=== PATIENT | male | born 1955 | race Caucasian/White ===

== ENCOUNTER 2017-02-26 15:23 | Observation (INO) | payer OTHER ==
[~2017-02-26] VITALS: Ht 182.9 cm; Wt 81.2 kg
[2017-02-26] MEDS ORDERED: KETOROLAC TROMETHAMINE 30 MG/ML VIAL IV STA (15:45)
[2017-02-26] MEDS ORDERED: SODIUM CHLORIDE 0.9% 500ML 500 ML IV STA (15:45)
[2017-02-26] MEDS ORDERED: BUPR1SUB23 PO (16:03)
[2017-02-26] MEDS ORDERED: CLON0.2T PO (16:03)
[2017-02-26 16:07] LABS: COMPLETE YES; HEMATOCRIT 37.7 % (42-52); IG% 0.5 %; LYMPH % 24.9 %; LYMPH ABS # 1.59 K/uL (1.2-3.4); MEAN CELL VOLUME 83.8 fL (80-100); MEAN CORPUSCULAR HEMOGLOBIN 29.1 pg (25-34); MEAN CORPUSCULAR HGB CONC 34.7 g/dl (32-36); MEAN PLATELET VOLUME 10.6 fL (7.4-10.4); MONO % 5.2 %; NEUT % 69.4 %; PLATELET COUNT 113 K/uL (130-400); WHITE BLOOD COUNT 6.39 K/uL (4.8-10.8)
--- NOTE | 2017-02-26 16:07 | DIAGNOSTIC IMAGING REPORT ---
CHEST ONE VIEW PORTABLE CLINICAL HISTORY: Chest pain. COMPARISON STUDY: No previous studies for comparison. FINDINGS: Incidental note is made of an azygos fissure and multiple left-sided rib fractures. Moderate enlargement of the cardiac silhouette is noted. There is no evidence of pulmonary edema. Mild left basilar opacity is present. There is no evidence of pulmonary edema. There is a possible small left pleural effusion. IMPRESSION: 1. Hazy left basilar opacity which favors atelectasis or artifact although consolidation could appear similar. Radiographic follow up is recommended. Possible small left pleural effusion. 2. Moderate cardiomegaly without evidence of pulmonary edema. Electronically signed by: Billy Adhikari M.D. 02/26/2017 4:06 PM Dictated Date/Time: 02/26/2017 4:04 PM
[2017-02-26] MEDS ORDERED: GABA-113 PO (16:17)
[2017-02-26] MEDS ORDERED: PROM25TA9 PO (16:17)
[2017-02-26] MEDS ORDERED: FAMO20TA11 PO (16:17)
[2017-02-26] MEDS ORDERED: CTP/1 PO (16:17)
[2017-02-26] MEDS ORDERED: LISI-729 PO (16:17)
[2017-02-26] MEDS ORDERED: QUET1TAB34 PO (16:17)
[2017-02-26] MEDS ORDERED: GABA800T PO (16:17)
[2017-02-26] MEDS ORDERED: DOXE50CA3 PO (16:17)
[2017-02-26] MEDS ORDERED: GLC/500 PO (16:17)
[2017-02-26] MEDS ORDERED: SUMA50TA15 PO (16:17)
--- NOTE | 2017-02-26 16:23 | EMERGENCY ROOM VISIT NOTE ---
History Report prepared by Boris: Delores Luis Under the Supervision of: Dr. Gio Isaac D.O. First contact with patient: 15:26 Chief Complaint: CHEST PAIN Stated Complaint: CARDIAC ASSESSMENT, SOB History of Present Illness The patient is a 61 year old male who presents to the Emergency Room with complaints of persistent mid-chest pain starting about 4-5 hours ago. He describes it to be a chest tightness. He denies any pain radiation to arm or jaw. He has worsening pain with palpation of chest and arm movement. He also complains of shortness of breath. He was lying down on his couch when he had an onset of his symptoms. He had used 1 tab Suboxone about 5 hours ago and started having the chest pain soon after. He reports a history of similar symptoms in the past with broken ribs after a fall but reports worse symptom severity today. He denies any history of heart attack. He has a history of hypertension and pulmonary embolism. He is visiting [place] from [place]. He has a history of inhaling heroin. His last heroin use was about 2 days ago. He uses heroin almost daily. He also complains of diarrhea. Pt denies headache, change in vision, fevers, nausea, vomiting, pain with urination, and melena. He does have a history of hypertension and diabetes. Source of History: patient Onset: about 4-5 hours ago Position: chest (mid) Quality: other (chest tightness) Timing: other (persistent) Modifying Factors (Worsening): movement (arm), other (palpation) Associated Symptoms: + SOB, No fevers, No headache, No nausea, No vomiting Review of Systems See HPI for pertinent positives & negatives. A total of 10 systems reviewed and were otherwise negative. Past Medical & Surgical Medical Problems: (1) Broken ribs (2) DM (diabetes mellitus) (3) Hepatitis C (4) HTN (hypertension) (5) MRSA (methicillin resistant Staphylococcus aureus) (6) Pulmonary embolism Surgical Problems: (1) H/O hernia repair Family History Patient reports no known family medical history. Social History Drug Use: heroin Marital Status: single Occupation Status: unemployed Current/Historical Medications Scheduled Clonidine Hcl (Catapres), 0.1 MG PO TID Doxepin (Sinequan), 100 MG PO HS Famotidine (Pepcid), 20 MG PO DAILY Gabapentin (Neurontin), 800 MG PO TID Lisinopril (Prinivil), 5 MG PO DAILY Metformin Hcl (Glucophage), 500 MG PO BID Quetiapine Fumarate (Seroquel), 100 MG PO BID Sumatriptan Succinate (Imitrex), 50 MG PO PRN Scheduled PRN Buprenorphine Hcl-Naloxone Hcl (Suboxone 8-2 Mg), 1 TAB PO DAILY PRN for PRN Promethazine Hcl (Phenergan), 25 MG PO BID PRN for Nausea Allergies Coded Allergies: No Known Allergies (Unverified , 02/26/17) Physical Exam Vital Signs Date Time Temp Pulse Resp B/P Pulse Ox O2 Delivery O2 Flow Rate FiO2 02/26/17 16:51 75 24 02/26/17 16:46 156/99 02/26/17 16:29 65 30 02/26/17 16:24 193/109 02/26/17 16:23 60 23 02/26/17 16:19 59 02/26/17 15:53 72 17 97 02/26/17 15:37 96 Room Air 02/26/17 15:37 36.9 89 20 128/87 96 Room Air 02/26/17 15:37 96 Room Air 02/26/17 15:30 128/87 Physical Exam GENERAL: Sitting up in bed, disheveled, no acute distress, non-toxic, talking in full sentences. EYE EXAM: normal conjunctiva OROPHARYNX: no exudate, no erythema, lips, buccal mucosa, and tongue normal and mucous membranes are moist NECK: supple, no nuchal rigidity, no adenopathy, non-tender CHEST: Reproducible anterior chest wall tenderness over the sternum, worsens with AB-duction of right and left extremities, nontender once you get to mid- axillary lines. LUNGS: Clear to auscultation. Normal chest wall mechanics HEART: no murmurs, S1 normal and S2 normal ABDOMEN: abdomen soft, non-tender, normo-active bowel sounds, no masses, no rebound or guarding. BACK: Back is symmetrical on inspection and there is no deformity, no midline tenderness, no CVA tenderness. SKIN: no rashes and no bruising. Multiple tattoos. UPPER EXTREMITIES: upper extremities are grossly normal. LOWER EXTREMITIES: No pitting edema. Calves are equal bilaterally. NEURO EXAM: Normal sensorium, cranial nerves II-XII grossly intact, normal speech, no gross weakness of arms, no gross weakness of legs. Medical Decision & Procedures ER Provider Diagnostic Interpretation: X-ray results as stated below per my and the radiologist's interpretation: CHEST ONE VIEW PORTABLE CLINICAL HISTORY: Chest pain. COMPARISON STUDY: No previous studies for comparison. FINDINGS: Incidental note is made of an azygos fissure and multiple left-sided rib fractures. Moderate enlargement of the cardiac silhouette is noted. There is no evidence of pulmonary edema. Mild left basilar opacity is present. There is no evidence of pulmonary edema. There is a possible small left pleural effusion. IMPRESSION: 1. Hazy left basilar opacity which favors atelectasis or artifact although consolidation could appear similar. Radiographic follow up is recommended. Possible small left pleural effusion. 2. Moderate cardiomegaly without evidence of pulmonary edema. Electronically signed by: Billy Adhikari M.D. 02/26/2017 4:06 PM Dictated Date/Time: 02/26/2017 4:04 PM Laboratory Results 02/26/17 15:55 Test 02/26/17 15:55 White Blood Count 6.39 K/uL (4.8-10.8) Red Blood Count 4.50 M/uL (4.7-6.1) Hemoglobin 13.1 g/dL (14.0-18.0) Hematocrit 37.7 % (42-52) Mean Corpuscular Volume 83.8 fL (80-100) Mean Corpuscular Hemoglobin 29.1 pg (25-34) Mean Corpuscular Hemoglobin Concent 34.7 g/dl (32-36) Platelet Count 113 K/uL (130-400) Mean Platelet Volume 10.6 fL (7.4-10.4) Neutrophils (%) (Auto) 69.4 % Lymphocytes (%) (Auto) 24.9 % Monocytes (%) (Auto) 5.2 % Eosinophils (%) (Auto) 0.0 % Basophils (%) (Auto) 0.0 % Neutrophils # (Auto) 4.44 K/uL (1.4-6.5) Lymphocytes # (Auto) 1.59 K/uL (1.2-3.4) Monocytes # (Auto) 0.33 K/uL (0.11-0.59) Eosinophils # (Auto) 0.00 K/uL (0-0.5) Basophils # (Auto) 0.00 K/uL (0-0.2) Immature Granulocyte % (Auto) 0.5 % Immature Granulocyte # (Auto) 0.03 K/uL (0.00-0.02) Prothrombin Time 11.4 SECONDS (9.0-12.0) Prothromb Time International Ratio 1.1 (0.9-1.1) D-Dimer 440 ug/L FEU (0-500) Anion Gap 8.0 mmol/L (3-11) Est Creatinine Clear Calc Drug Dose 118.4 ml/min Estimated GFR () 116.5 Estimated GFR (Non- 100.6 BUN/Creatinine Ratio 11.2 (10-20) Calcium Level 8.8 mg/dl (8.5-10.1) Total Bilirubin 0.5 mg/dl (0.2-1) Direct Bilirubin 0.2 mg/dl (0-0.2) Aspartate Amino Transf (AST/SGOT) 53 U/L (15-37) Alanine Aminotransferase (ALT/SGPT) 56 U/L (12-78) Alkaline Phosphatase 82 U/L (45-117) Total Creatine Kinase 87 U/L (39-308) Total Protein 8.4 gm/dl (6.4-8.2) Albumin 3.2 gm/dl (3.4-5.0) Laboratory results per my review. Medications Administered Medications (Trade) Dose Ordered Sig/De Route Start Time Stop Time Status Last Admin Dose Admin Sodium Chloride (Nss 500ml) 500 ml @ 999 mls/hr Q31M STAT IV 02/26/17 15:45 02/26/17 16:15 DC 02/26/17 16:06 999 MLS/HR Ketorolac Tromethamine (Toradol Inj) 30 mg NOW STAT IV 02/26/17 15:45 02/26/17 15:47 DC 02/26/17 16:06 30 MG Aspirin (Aspirin Chew) 324 mg NOW STAT PO 02/26/17 16:47 02/26/17 16:48 DC 02/26/17 16:47 324 MG ECG Indication: chest pain Rate (beats per minute): 78 Rhythm: sinus rhythm Findings: prolonged QT, other (normal axis) ED Course ED COURSE: Vital signs were reviewed and showed normal. The patients medical record was reviewed The above diagnostic studies were performed and reviewed. ED treatments and interventions as stated above. 1526: The patient was evaluated in room B12A. A complete history and physical examination was performed. 1545: Toradol Inj 30 mg IV, Sodium Chloride 500 ml @ 999 mls/hr IV 1643: Upon reevaluation, the patient is resting comfortably.I discussed my findings with the patient and he understands and agrees with the treatment plan. Based on the patients age, coexisting illnesses, exam and lab findings the decision to treat as an inpatient was made. The patient remained stable while under my care. The patient will be evaluated for further management. 1646: I discussed the patient's case with RONNA Pino from [facility]. 1647: Aspirin 324 mg PO Medical Decision Differential diagnoses includes but is not limited to acute coronary syndrome, myocardial infarction, pericarditis, pulmonary embolus, aortic dissection, pneumonia, pneumothorax, musculoskeletal, shingles, esophageal. Blood pressure screening: Patient was found to have normal blood pressure on screening and does not require follow-up. Medication Reconciliation: I attest that I have personally reviewed the patient' s current medication list. Patient is a 61-year-old male brought in by EMS for midsternal chest pain associated with shortness of breath which started around 11 to 12 this morning shortly after him taking a Suboxone which is not prescribed to him. He does use heroin daily but has not used the past 3 days. Pain on my exam is completely reproducible and worsens with movement of the arms. No fevers. He is a diabetic with a history of hypertension. EKG was nondiagnostic. Chest x- ray was unremarkable. Troponin was negative but CK-MB was elevated. Patient was given aspirin and I did order labetalol but since his blood pressure trended down we held on this. With his elevation in the CK-MB elected to observe him overnight with his chest pain. His pain significantly improved with Toradol. I do favor his chest pain is multifactorial and felt it was reasonable to observe him overnight for this chest pain with elevation in the CK -MB. Consults Time Called: 1640 Consulting Physician: RONNA Pino from [facility] Returned Call: 1646 I discussed the patient's case with RONNA Pino from [facility]. Impression Primary Impression: Precordial chest pain Additional Impressions: Musculoskeletal chest pain Elevated CK-MB level Hypertension Scribe Attestation The scribe's documentation has been prepared under my direction and personally reviewed by me in its entirety. I confirm that the note above accurately reflects all work, treatment, procedures, and medical decision making performed by me. Departure Information Dispostion Being Evaluated By Hospitalist Patient Instructions My [facility] Problem Qualifiers Additional Impressions: Hypertension Hypertension type: unspecified secondary hypertension Qualified Codes: I15.9 - Secondary hypertension, unspecified
[2017-02-26 16:24] LABS: BLOOD UREA NITROGEN 8 mg/dl (7-18); BUN/CREATININE RATIO 11.2 (10-20); CALCIUM 8.8 mg/dl (8.5-10.1); CARBON DIOXIDE 26 mmol/L (21-32); CHLORIDE 108 mmol/L (98-107); CREATININE 0.71 mg/dl (0.60-1.40); GLUCOSE 132 mg/dl (70-99); POTASSIUM 3.5 mmol/L (3.5-5.1); SODIUM 142 mmol/L (136-145)
[2017-02-26 16:29] LABS: CKMB/CK RATIO 4.5 (0-3.0)
[2017-02-26] MEDS ORDERED: LABETALOL HCL IV 5 MG/ML 20ML IV STA (16:37)
[2017-02-26] MEDS ORDERED: ASPIRIN 81 MG CHEW PO STA (16:47)
[2017-02-26] MEDS ORDERED: ACETAMINOPHEN 325 MG TAB PO PRN (17:15)
[2017-02-26] MEDS ORDERED: NITROGLYCERIN 0.4 MG SL PER TAB CHARGE SL PRN (17:15)
[2017-02-26] MEDS ORDERED: ONDANSETRON INJ 2 MG/ML 2 ML VIAL IV PRN (17:15)
[2017-02-26] MEDS ORDERED: DEXTROSE 50% 50 ML SYR IV PRN (17:15)
[2017-02-26] MEDS ORDERED: GLUCOSE 40% GEL 15 GM TUBE PO PRN (17:15)
[2017-02-26] MEDS ORDERED: GLUCOSE 10 TABS/TUBE PO PRN (17:15)
[2017-02-26] MEDS ORDERED: GLUCAGON FOR INJ 1 MG VIAL SQ PRN (17:15)
[2017-02-26] MEDS ORDERED: PROMETHAZINE HCL INJ 12.5 MG in SODIUM CHLORIDE 0.9% 50ML 50 ML IV PRN (17:30)
[2017-02-26] MEDS ORDERED: LORAZEPAM 2 MG/ML 1 ML VIAL IV PRN ×3 (17:45→23:00)
--- NOTE | 2017-02-26 17:57 | History and Physical ---
History & Physical Date & Time of Service: February 26, 2017 ~ 17:00 Chief Complaint: Chest Pain, Shortness of Breath Primary Care Physician: No Doctor, Assigned History of Present Illness 61 year old male who presents to the ER with chest pain and shortness of breath. Patient reports his symptoms began today while he was laying on the couch. He reports the pain as located in his mid chest. He describes the pain as a pressure. He reports associated shortness of breath, lightheadedness, and dizziness. He describes the pain as severe. He denies diaphoresis or nausea. He reports exertional shortness of breath for the past one year. He also reports coughing up blood for the past one year. Patient is from the [place] area and is here visiting a friend. He admits to drug and alcohol use however does not give many details about the quantity of his use. He reports drinking three 40oz beers yesterday but will not say how often he drinks. He reports using "speed balls" two days ago which he reports is a combination of heroine and cocaine that can be injected or inhaled. Again, he will not say how often he uses. He does report using for the past 40 years. He says that he uses when he is depressed. He reports suicidal thoughts but denies having a plan. He does report multiple intentional drug overdoses and reports "it never seems to work. I always wake up." He denies abdominal pain, vomiting, or diarrhea. No fevers or chills. He denies any urinary symptoms. In the ER, patient's work up is unremarkable. Past Medical/Surgical History Medical Problems: (1) Broken ribs Status: Resolved (2) DM (diabetes mellitus) Status: Chronic (3) Hepatitis C Status: Chronic (4) HTN (hypertension) Status: Chronic (5) MRSA (methicillin resistant Staphylococcus aureus) Status: Chronic (6) Pulmonary embolism Status: Resolved Surgical Problems: (1) H/O hernia repair Status: Chronic Family History denies family history of CAD Social History Smoking Status: Never Smoker Alcohol Use: will not quanitfy use Drug Use: cocaine (will not quantify use), heroin (will not quantify use) Multi-Drug Resistant Organisms History of MDRO: Yes Type of MDRO: MRSA Allergies Coded Allergies: No Known Allergies (Unverified , 02/26/17) Home Medications Scheduled Clonidine Hcl (Catapres), 0.1 MG PO TID Doxepin (Sinequan), 100 MG PO HS Famotidine (Pepcid), 20 MG PO DAILY Gabapentin (Neurontin), 800 MG PO TID Lisinopril (Prinivil), 5 MG PO DAILY Metformin Hcl (Glucophage), 500 MG PO BID Quetiapine Fumarate (Seroquel), 100 MG PO BID Sumatriptan Succinate (Imitrex), 50 MG PO PRN Scheduled PRN Buprenorphine Hcl-Naloxone Hcl (Suboxone 8-2 Mg), 1 TAB PO DAILY PRN for PRN Promethazine Hcl (Phenergan), 25 MG PO BID PRN for Nausea Review of Systems ROS per HPI, all other systems reviewed and negative Physical Exam Vital Signs Date Time Temp Pulse Resp B/P Pulse Ox O2 Delivery O2 Flow Rate FiO2 02/26/17 16:46 156/99 02/26/17 16:29 65 30 02/26/17 16:24 193/109 02/26/17 16:23 60 23 02/26/17 16:19 59 02/26/17 15:53 72 17 97 02/26/17 15:37 96 Room Air 02/26/17 15:37 36.9 89 20 128/87 96 Room Air 02/26/17 15:37 96 Room Air 02/26/17 15:30 128/87 General Appearance: no apparent distress Head: normocephalic Eyes: normal inspection ENT: hearing grossly normal Neck: supple, no JVD Respiratory/Chest: lungs clear, normal breath sounds, no respiratory distress, + pertinent finding (left chest wall tender) Cardiovascular: regular rate, rhythm, no edema, normal peripheral pulses Abdomen/GI: normal bowel sounds, non tender, soft Extremities/Musculoskelatal: normal inspection, no calf tenderness Neurologic/Psych: no motor/sensory deficits, alert, normal mood/affect, oriented x 3 Skin: normal color, warm/dry Diagnostics Laboratory Results Results Past 24 Hours Test 02/26/17 15:55 Range/Units White Blood Count 6.39 4.8-10.8 K/uL Red Blood Count 4.50 4.7-6.1 M/uL Hemoglobin 13.1 14.0-18.0 g/dL Hematocrit 37.7 42-52 % Mean Corpuscular Volume 83.8 80-100 fL Mean Corpuscular Hemoglobin 29.1 25-34 pg Mean Corpuscular Hemoglobin Concent 34.7 32-36 g/dl Platelet Count 113 130-400 K/uL Mean Platelet Volume 10.6 7.4-10.4 fL Neutrophils (%) (Auto) 69.4 % Lymphocytes (%) (Auto) 24.9 % Monocytes (%) (Auto) 5.2 % Eosinophils (%) (Auto) 0.0 % Basophils (%) (Auto) 0.0 % Neutrophils # (Auto) 4.44 1.4-6.5 K/uL Lymphocytes # (Auto) 1.59 1.2-3.4 K/uL Monocytes # (Auto) 0.33 0.11-0.59 K/uL Eosinophils # (Auto) 0.00 0-0.5 K/uL Basophils # (Auto) 0.00 0-0.2 K/uL RDW Standard Deviation 41.2 36.4-46.3 fL RDW Coefficient of Variation 13.5 11.5-14.5 % Immature Granulocyte % (Auto) 0.5 % Immature Granulocyte # (Auto) 0.03 0.00-0.02 K/uL D-Dimer 440 0-500 ug/L FEU Sodium Level 142 136-145 mmol/L Potassium Level 3.5 3.5-5.1 mmol/L Chloride Level 108 98-107 mmol/L Carbon Dioxide Level 26 21-32 mmol/L Anion Gap 8.0 3-11 mmol/L Blood Urea Nitrogen 8 7-18 mg/dl Creatinine 0.71 0.60-1.40 mg/dl Est Creatinine Clear Calc Drug Dose 118.4 ml/min Estimated GFR () 116.5 Estimated GFR (Non- 100.6 BUN/Creatinine Ratio 11.2 10-20 Random Glucose 132 70-99 mg/dl Calcium Level 8.8 8.5-10.1 mg/dl Total Creatine Kinase 87 39-308 U/L Creatine Kinase MB 3.9 0.5-3.6 ng/ml Creatine Kinase MB Ratio 4.5 0-3.0 Troponin I < 0.015 0-0.045 ng/ml Microbiology Results 02/26/17 Blood Culture, Ordered Pending 02/26/17 Blood Culture, Ordered Pending Diagnostic Radiology CXR IMPRESSION: 1. Hazy left basilar opacity which favors atelectasis or artifact although consolidation could appear similar. Radiographic follow up is recommended. Possible small left pleural effusion. 2. Moderate cardiomegaly without evidence of pulmonary edema. Impression Assessment and Plan CHEST PAIN - admit to tele - patient presenting with sudden onset chest pain and shortness of breath - risk factors for ACS: HTN, DM - initial troponin negative, EKG without acute ST changes - D. Dimer negative - noted reproducible chest pain with palpation - suspect symptoms are musculoskeletal / due to anxiety / drug and alcohol use - will check resting echo, evaluate for vegetation due to IVD use (blood cultures also ordered); consider stress test - check lipid panel and hgb a1c ALCOHOL AND DRUG USE - difficult to obtain quantity of use from patient - reports last drink of alcohol was yesterday, last use of cocaine and heroine was 2 days ago, used Suboxone today - will initial alcohol withdrawal protocol - noted patient already on gabapentin ; since he will not quantify his use will continue his home dose of gabapentin and order PRN Ativan - check ETOH level and drug screen - banana bag - low threshold for ICU transfer for Precedex SUICIDAL THOUGHTS - patient reports suicidal thoughts and attempted intentional overdoses with drugs - suicide precautions - mental health consult REPORTED HEMOPTYSIS - will monitor for - hgb stable - consider CT chest if hemoptysis observed PROLONGED QTC - monitor EKG daily - avoid QTC prolonging agents when able HEPATITIS C - check LFTs DM - non compliant with metformin - check hgb a1c - will utilize SSI while hospitalized HTN - BP controlled initially however jeff in the ER and received IV Labetalol with improvement - non compliant with Lisinopril, reports he does take his clonidine - will continue clonidine, could add Lisinopril if needed DVT PROPHYLAXIS - SQ Lovenox DISPO - The patient will be placed as observation status for now until further work up is complete. ATTENDING NOTE : records reviewed care co ordinated with Teagan FRIEND pt interviewed and examined please refer to Teagan Arellano's documentation for detail pt history Briefly , 61 yo M from [facility] with hx of polysubstance abuse including IV drugs, Alcohol abuse presented to ED with complain of chest pain his hx is very vague claims to use IV drugs prior to coming to ER , then changes his story that he drank alcohol -vodka -does not want to mention how much P/E: GEN ; disheveled appearing , smells of alcohol HT : tachycardic LUNGS : CTA ABDOMEN: soft, non tender EXT : multiple track springer on extremities NEURO: no focal deficit A/p : CHEST PAIN ; atypical for ACS monitor in tele follow serial Cardiac markers repeat EKG in AM POLYSUBSTANCE ABUSE /ETOH INTOXICATION: pt will be started on Ativan as ETOH withdrawal protocol ordered for IV banana bag monitor in tele caution for withdrawal/DT low threshold to transfer to ICU for IV Precedex gtt for overt s/s of withdrawal FULL CODE please refer to Teagan FRIEND documentation for discussion of other issues Jasmyne Mandujano MD Level of Care Telemetry Resuscitation Status FULL RESUSCITATION VTE Prophylaxis VTE Risk Assessment Done? Y/N: Yes Risk Level: Moderate Given or contraindicated: T.E.D. Stockings, SCD's
[2017-02-26] MEDS ORDERED: IV FLUIDS COMPLETED PRN (19:00)
[2017-02-26] MEDS ORDERED: MULTI-VITAMIN INFUSION INJ 10 ML, THIAMINE HCL INJ 100 MG, FoLIC ACID INJ 1 MG in SODIU... IV SCH (19:00)
[2017-02-26 19:29] LABS: INR 1.1 (0.9-1.1); PROTHROMBIN TIME (PATIENT) 11.4 SECONDS (9.0-12.0)
[2017-02-26 20:18] VITALS: BP 160/101; PULSE 79; TEMP 36.5; O2SAT 94; Ht 182.9 cm; Wt 81.2 kg
[2017-02-26 20:53] LABS: HEMATOCRIT 37.9 % (42-52); MEAN CORPUSCULAR HGB CONC 34.6 g/dl (32-36); RED BLOOD COUNT 4.51 M/uL (4.7-6.1); WHITE BLOOD COUNT 7.01 K/uL (4.8-10.8)
[2017-02-26] MEDS: INSULIN ASPART 100 UNITS/ML 3 ML PEN SC SCH (21:00)
[2017-02-26] MEDS: DOXEPIN HCL 50 MG CAP PO SCH (21:05)
[2017-02-26] MEDS: GABAPENTIN 800 MG TAB PO SCH (21:05)
[2017-02-26] MEDS: CLONIDINE HCL 0.1 MG TAB PO SCH (21:06)
[2017-02-26] MEDS ORDERED: MULTI-VITAMIN INFUSION INJ 10 ML, THIAMINE HCL INJ 100 MG, FoLIC ACID INJ 1 MG in SODIU... IV ONE (22:56)
[2017-02-26] MEDS ORDERED: CHLORDIAZEPOXIDE 25 MG CAP PO SCH (23:00)
[2017-02-26 23:02] VITALS: BP 142/86; PULSE 78; TEMP 36.7; O2SAT 94
[2017-02-27] VITALS (9 sets, daily range): BP systolic 136–155; BP diastolic 84–95; PULSE 65–94; TEMP 36.4–36.8; O2SAT 91–97
[2017-02-27] MEDS: THIAMINE HCL INJ 100 MG in SYRINGE 9 ML IV SCH ×2 (00:12→23:35)
[2017-02-27] MEDS: ENOXAPARIN 40 MG/0.4 ML SYR SC SCH ×2 (00:12→21:42)
[2017-02-27 00:27] LABS: MEAN PLATELET VOLUME 11.1 fL (7.4-10.4); PLATELET COUNT 94 K/uL (130-400); PLT ESTIMATE DECREASED
[2017-02-27 03:30] LABS: MEAN CELL VOLUME 83.7 fL (80-100); MEAN CORPUSCULAR HEMOGLOBIN 27.5 pg (25-34); MEAN CORPUSCULAR HGB CONC 32.8 g/dl (32-36); MEAN PLATELET VOLUME 10.4 fL (7.4-10.4); PLATELET COUNT 114 K/uL (130-400); RED BLOOD COUNT 4.66 M/uL (4.7-6.1); WHITE BLOOD COUNT 7.56 K/uL (4.8-10.8)
[2017-02-27 03:55] LABS: BLOOD UREA NITROGEN 10 mg/dl (7-18); BUN/CREATININE RATIO 13.1 (10-20); CALCIUM 8.1 mg/dl (8.5-10.1); CARBON DIOXIDE 25 mmol/L (21-32); CHLORIDE 108 mmol/L (98-107); CREATININE 0.75 mg/dl (0.60-1.40); GLUCOSE 122 mg/dl (70-99); POTASSIUM 3.3 mmol/L (3.5-5.1); SODIUM 140 mmol/L (136-145)
[2017-02-27 04:00] LABS: CHOLESTEROL 110 mg/dl (0-200); CHOLESTEROL/HDL RATIO 3.7; HDL CHOLESTEROL 30 mg/dl; LDL CHOLESTEROL CALCULATED 59 mg/dl; TRIGLYCERIDES 103 mg/dl (0-150); VERY LOW DENSITY LIPOPROT CALC 21 mg/dl
[2017-02-27 06:41] LABS: ESTIMATED AVERAGE GLUCOSE 128 mg/dl; HA1C FLAG Normal (Normal)
[2017-02-27] MEDS: INSULIN ASPART 100 UNITS/ML 3 ML PEN SC SCH ×4 (07:00→20:11)
[2017-02-27] MEDS: CHLORDIAZEPOXIDE 50MG 1ST DOSE PO SCH ×4 (08:46→23:50)
[2017-02-27] MEDS: GABAPENTIN 800 MG TAB PO SCH ×3 (08:47→21:41)
[2017-02-27] MEDS: FAMOTIDINE 20 MG TAB PO SCH (08:47)
[2017-02-27] MEDS: ASPIRIN 81 MG ECTAB PO SCH (08:47)
[2017-02-27] MEDS: CLONIDINE HCL 0.1 MG TAB PO SCH ×3 (08:48→21:41)
--- NOTE | 2017-02-27 13:01 | Psychiatric Consultation ---
Consultation Date of Consultation February 27, 2017. Identifying Data Inderjit Koenig is a 61-year-old male who is homeless, substance dependent and from the [facility], who was admitted to the medical floor to evaluate chest pain. We are consulted to evaluate depression. Information is gathered from the patient, the [facility] site and considered to be reliable. Chief Complaint "Terrible.". History of Present Illness The patient is a 61 yo male, from the [facility], who readily admits to being a drug addict, presented to the ER with c/o chest pain and SOB. He admits to taking Suboxone one the day of admission and says that he drinks beer daily and 10 bags and more of heroin daily. He is homeless, receives psychiatric services in [facility], diagnosis unknown. He says that he sees a psychiatrist and has a therapist named Karla. He says that his mood is "bad" because of his situation, and reports chronic SI, with reckless behaviors like walking into the street without looking, because he doesn't fear . He reports that his sleep is generally good because he takes Sinequan at night, but appetite has been "horrible", only eating when he is using. He report hearing voices that call his name, but do not command him. He denies SI. We talk about his substance use and he says that despite having filled 184 pills of Suboxone since November, that he has not been taking them because they don't work. He wants methadone which he says worked better in the past, but admits that he has not shared this with his Suboxone Clinice, because they don't prescribe Methadone. He is also asking for ativan here. He told the liaison nurse earlier that he sometimes used too many drugs as a way to harm himself, but always wakes up. We discuss rehab, but he refuses to go, and says that his plan is to return to [facility] by bus (girlfriend will be visiting and providing a ticket) so that he can attend his social security appt tomorrow and then plans to use. During the interview he does not appear to be responding to internal stimula. His presentation of facts today varies in many respects from previous reports documented in the EMR. Past Psychiatric History Current OP Treatment: psychiatrist, therapist Access to a Gun: No Suicide Attempts: No Past Medical/Surgical History History of Concussion/Seizure: No (1) Hypertension (2) DM (diabetes mellitus) (3) MRSA (methicillin resistant Staphylococcus aureus) (4) Hepatitis C Allergies Allergies: Coded Allergies: No Known Allergies (Unverified , 02/26/17) Home Medications Scheduled Clonidine Hcl (Catapres), 0.1 MG PO TID Doxepin (Sinequan), 100 MG PO HS Famotidine (Pepcid), 20 MG PO DAILY Gabapentin (Neurontin), 800 MG PO TID Lisinopril (Prinivil), 5 MG PO DAILY Metformin Hcl (Glucophage), 500 MG PO BID Quetiapine Fumarate (Seroquel), 100 MG PO BID Sumatriptan Succinate (Imitrex), 50 MG PO PRN Scheduled PRN Buprenorphine Hcl-Naloxone Hcl (Suboxone 8-2 Mg), 1 TAB PO DAILY PRN for PRN Promethazine Hcl (Phenergan), 25 MG PO BID PRN for Nausea Family History Patient reports no known family medical history. Alcohol Use Alcohol Use In Past 12 Months: Yes Drinks daily 6-8 cans of beer Smoking Use Smoking Status: Never Smoker Substance History Readily admits to substance use as described in the HPI. He was last in rehab in [place] for detox 1 yr ago. He has an arrest record in [facility] from for possession with intent to manufacture and deliver controlled substances. He is getting Suboxone from multiple providers in the [facility] area, although they may all be from the same practice. Personal History Lives in: homeless in [facility] Education: graduated from high school Relationship History: never Children: 2 adult children Legal History: reported (reports recently picked up for posession of heroin) Psychological Trauma History: Other (Denies) Review of Systems Constitutional: malaise Eyes: denies: as stated in HPI, blurred vision, discharge, double vision, eye pain, itching, no symptoms, other, photophobia, redness, tearing, visual changes ENT: denies: dental pain, ear discharge, ear pain, epistaxis, gum swelling, loss of hearing, mouth pain, mouth swelling, nasal congestion, nasal pain, no symptoms reported, other, rhinorrhea, see HPI, sore throat, stidor, throat swelling, tinnitus Cardiovascular: denies: chest pain, chest pressure, chest tightness, diaphoresis, no symptoms reported, other, palpitations, see HPI, syncope Gastrointestinal: denies no symptoms reported, denies see HPI, denies abdominal pain, denies constipation, denies diarrhea, denies nausea, denies vomiting, denies other Genitourinary - Male: denies: amenorrhea, impotence, no symptoms, other, penile discharge, penile itching, rash, see HPI, testicular pain, testicular swelling Musculoskeletal: other (body aches) Integumentary: other (open injection sites on feet) Neurologic: denies: dizziness, focal weakness, general weakness, headache, lethargy, memory loss, no symptoms, numbness, other, paresthesias, pre-existing deficit, see HPI, seizure, tics, tingling, tremors, vertigo Endocrine: denies: as stated in HPI, cold intolerance, goiter, hair changes, heat intolerance, no symptoms, other, polydipsia, polyuria, skin changes Hematologic / Lymphatic: denies: abnormal clotting, adenopathy, anemia, as stated in HPI, easy bleeding, easy bruising, gums bleeding, no symptoms, other, petechiae Examination Physical Examination As per Teagan FRIEND Vital Signs Vital Signs Past 12 Hours Date Time Temp Pulse Resp B/P Pulse Ox O2 Delivery O2 Flow Rate FiO2 02/27/17 12:20 92 Room Air 02/27/17 11:25 36.6 81 20 146/95 92 Room Air 02/27/17 08:00 Room Air 02/27/17 07:10 36.5 65 20 136/84 91 Room Air 02/27/17 04:00 Room Air 02/27/17 03:49 36.8 94 20 155/88 94 Room Air Laboratory Results Last 24 Hours Test 02/26/17 15:55 02/26/17 18:41 02/26/17 20:45 02/26/17 21:06 White Blood Count 6.39 K/uL 7.01 K/uL Red Blood Count 4.50 M/uL 4.51 M/uL Hemoglobin 13.1 g/dL 13.1 g/dL Hematocrit 37.7 % 37.9 % Mean Corpuscular Volume 83.8 fL 84.0 fL Mean Corpuscular Hemoglobin 29.1 pg 29.0 pg Mean Corpuscular Hemoglobin Concent 34.7 g/dl 34.6 g/dl Platelet Count 113 K/uL 94 K/uL Mean Platelet Volume 10.6 fL 11.1 fL Neutrophils (%) (Auto) 69.4 % Lymphocytes (%) (Auto) 24.9 % Monocytes (%) (Auto) 5.2 % Eosinophils (%) (Auto) 0.0 % Basophils (%) (Auto) 0.0 % Neutrophils # (Auto) 4.44 K/uL Lymphocytes # (Auto) 1.59 K/uL Monocytes # (Auto) 0.33 K/uL Eosinophils # (Auto) 0.00 K/uL Basophils # (Auto) 0.00 K/uL RDW Standard Deviation 41.2 fL 41.2 fL RDW Coefficient of Variation 13.5 % 13.5 % Immature Granulocyte % (Auto) 0.5 % Immature Granulocyte # (Auto) 0.03 K/uL Prothrombin Time 11.4 SECONDS Prothromb Time International Ratio 1.1 D-Dimer 440 ug/L FEU Sodium Level 142 mmol/L Potassium Level 3.5 mmol/L Chloride Level 108 mmol/L Carbon Dioxide Level 26 mmol/L Anion Gap 8.0 mmol/L Blood Urea Nitrogen 8 mg/dl Creatinine 0.71 mg/dl Est Creatinine Clear Calc Drug Dose 118.4 ml/min Estimated GFR () 116.5 Estimated GFR (Non- 100.6 BUN/Creatinine Ratio 11.2 Random Glucose 132 mg/dl Calcium Level 8.8 mg/dl Total Bilirubin 0.5 mg/dl Direct Bilirubin 0.2 mg/dl Aspartate Amino Transf (AST/SGOT) 53 U/L Alanine Aminotransferase (ALT/SGPT) 56 U/L Alkaline Phosphatase 82 U/L Total Creatine Kinase 87 U/L Creatine Kinase MB 3.9 ng/ml 2.9 ng/ml Creatine Kinase MB Ratio 4.5 Troponin I < 0.015 ng/ml < 0.015 ng/ml Total Protein 8.4 gm/dl Albumin 3.2 gm/dl Ethyl Alcohol mg/dL < 3.0 mg/dl Platelet Estimate DECREASED Bedside Glucose 137 mg/dl Test 02/27/17 03:00 02/27/17 03:20 02/27/17 06:46 02/27/17 11:20 Creatine Kinase MB Ratio White Blood Count 7.56 K/uL Red Blood Count 4.66 M/uL Hemoglobin 12.8 g/dL Hematocrit 39.0 % Mean Corpuscular Volume 83.7 fL Mean Corpuscular Hemoglobin 27.5 pg Mean Corpuscular Hemoglobin Concent 32.8 g/dl RDW Standard Deviation 41.3 fL RDW Coefficient of Variation 13.5 % Platelet Count 114 K/uL Mean Platelet Volume 10.4 fL Sodium Level 140 mmol/L Potassium Level 3.3 mmol/L Chloride Level 108 mmol/L Carbon Dioxide Level 25 mmol/L Anion Gap 7.0 mmol/L Blood Urea Nitrogen 10 mg/dl Creatinine 0.75 mg/dl Est Creatinine Clear Calc Drug Dose 112.1 ml/min Estimated GFR () 113.9 Estimated GFR (Non- 98.3 BUN/Creatinine Ratio 13.1 Random Glucose 122 mg/dl Estimated Average Glucose 128 mg/dl Hemoglobin A1c 6.1 % Calcium Level 8.1 mg/dl Creatine Kinase MB 2.2 ng/ml Troponin I < 0.015 ng/ml Triglycerides Level 103 mg/dl Cholesterol Level 110 mg/dl HDL Cholesterol 30 mg/dl LDL Cholesterol, Calculated 59 mg/dl VLDL Cholesterol, Calculated 21 mg/dl Cholesterol/HDL Ratio 3.7 Bedside Glucose 136 mg/dl 216 mg/dl Mental Examination During interview pt is: alert and oriented, guarded Appearance: appropriately groomed Eye contact is: fair Motor behavior is: no abnormal motor movements Speech: normal in rate, rhythm & volume (at times loud) Affect: blunted Mood is: depressed Thought process: goal directed Thought content: reality based without delusions Suicidal thought are: present (chronic without specific plan or intent) Homicidal thoughts are: denied Hallucinations: denies auditory (people calling his name) Cognition: memory grossly intact, attention grossly intact, language grossly intact Intelligence estimated to be: average Insight: poor Judgement: poor Impression / Recommendations Impression 61 yo male admitted with c/o chest pain and shortness of breath, likely related to substance use. We are consulted to evaluate depression. The patient endorses chronic depression with chronic thoughts of suicide but no plan or intent. He has had suicidal behaviors in the past. His focus, however, is on substances. He is filling Suboxone, but says he isn't taking it raising concerns that he is diverting it. He wants methadone, which I have said that we will not provide for him at this time. He plans to continue to use, has no interest in rehab. He refuses to allow me to contact his psychiatric providers in the [facility] area, and I have suspicion that he is manipulating in order to obtain controlled substances. I have talked with him about the need to address his addictions before his mental illness can be addressed, but he continues to refuse. I do not think that he meets criteria for acute inpatient care given the chronicity of his depression/SI that are clearly related to his life circumstances. He says his girlfriend will be coming in to arrange for the bus ticket back to [facility]. I offer concerns that this girlfriend may or may not be involved in his drug activity, but suggest that extra attention be pain during her visit, to be sure that she does not provide substances. No drug screen was performed on admission. If he appears altered after her visit, would obtain a drug screen. From a psychiatric stand point, he is OK for discharge when medically cleared. Risk Factors Assessment Male: Yes : Yes /single/: Yes Higher / Fall in social status: No Access to guns: No Health problems: Yes Mental Health Diagnoses: Yes Substance use disorders: Yes Previous attempt: No Previous psychiatric stay: No Smoker: No Protective Factors Assessment : No Responsible for young children: No Employed: No Stable relationships: No Supportive family: No Recommendations (1) Persistent mood [affective] disorder, unspecified 02/27 - Should attempt to confirm current RX and then order accordingly, but he refuses to allow contact with his psych providers. - He does not meet criteria for acute inpatient mental health treatment (2) Opiate dependence 02/27 - PDMP reveals Suboxone rx from multiple [facility] provider. I feel that it is important for them to be aware of his ongoing use, and possible diversion of their rx, so will call them directly. Recommend rehab. The patient is refusing. (3) Alcohol dependence 02/27 - Recommend rehab - he plans to resume using, but if going to be in the hospital for any length of time, recommend the AWSS protocol (4) Cocaine abuse 02/27 - Recommend rehab, which he refuses. Has been reviewed with Dr. Radha Coreas
--- NOTE | 2017-02-27 13:20 | Psychiatric Consultation ---
Psychiatric Consultation Date of Service: February 27, 2017. Contacted Dr. Lashae Grant's office in [facility] to alert her to concerns that suboxone is being diverted.
[2017-02-27 15:47] LABS: BENZODIAZEPINE, URINE POS (NEG); COCAINE,URINE NEG (NEG); PHENCYCLIDINE, URINE NEG (NEG)
--- NOTE | 2017-02-27 18:13 | Discharge Instructions ---
Discharge Instructions Date of Service February 27, 2017. Admission Reason for Admission: Chest Pain Discharge Discharge Diagnosis / Problem: NON SPECIFIC CHEST PAIN /POLYSUBSTANCE ABUSE / ALCOHOL WITHDRAWL Discharge Goals Goal(s): Decrease discomfort, Improve disease control Activity Recommendations Activity Limitations: resume your previous activity . Instructions / Follow-Up Instructions / Follow-Up HOSPITAL FOLLOW UP WITH YOUR FAMILY PHYSICIAN IN A WEEK , PLEASE CALL TO SCHEDULE APPOINTMENT NEED COMPLETE ABSTINENCE FORM ALCOHOL , IV DRUGS Current Hospital Diet Patient's current hospital diet: AHA Diet (Heart Healthy), Diabetes Type 2 Diet Discharge Diet Recommended Diet: AHA Diet (Heart Healthy), Low Sodium Diet (2gm Na) Pending Studies Studies pending at discharge: no Laboratory Results Hemoglobin A1c Test 02/27/17 03:20 Range/Units Estimated Average Glucose 128 mg/dl Hemoglobin A1c 6.1 H 4.5-5.6 % Lipid Panel Test 02/27/17 03:20 Range/Units Triglycerides Level 103 0-150 mg/dl Cholesterol Level 110 0-200 mg/dl HDL Cholesterol 30 mg/dl Cholesterol/HDL Ratio 3.7 LDL Cholesterol, Calculated 59 mg/dl Medical Emergencies . Who to Call and When: Medical Emergencies: If at any time you feel your situation is an emergency, please call 911 immediately. . Non-Emergent Contact Non-Emergency issues call your: Primary Care Provider . . "Provider Documentation" section prepared by Jasmyne Mandujano. . VTE Core Measure Inpt VTE Proph given/why not?: Castillo Wilkes, LILIA's PA Drug Monitoring Program Search Results: patient reviewed within database, see additional documentation Drug Monitoring Findings: PER PDMP SEARCH pt received 16 prescriptions of Suboxone form 7 different providers 02/21/17 Filled Suboxone # 28 tablet 02/08 Filled Suboxone # 46 tablet 02/06/17 Filled Suboxone # 16 tablet 01/12/17 Filled Suboxone # 10 tablet
--- NOTE | 2017-02-27 19:42 | Progress Note ---
Internal Med Progress Note Date of Service: February 27, 2017. Provider Documentation: SUBJECTIVE: no sign of distress mentions that he is going through withdrawal asking for Methadone vital stable in tele normal Sinus with HR in 70's OBJECTIVE: Vital Signs-as noted below Exam: GEN ; disheveled appearing , no sign of distress HT : regular S1.S2 LUNGS : CTA ABDOMEN: soft, non tender EXT : multiple track springer on extremities NEURO: no focal deficit Lab data as noted below. ASSESSMENT & PLAN: CHEST PAIN ; symptom has resolved no evidence of ACS serial Cardiac markers -negative no ST-T wave changes in EKG POLYSUBSTANCE ABUSE /ETOH INTOXICATION: no evidence of withdrawal so far appreciate input from Psych pt is demonstrating behavior of Narcotic addition PDMP reviewed -pt had filled 16 prescription of Suboxone form 7 different providers in past few months will not be discharged with any prescription narcotics or BDZ will need to be follow up with Suboxone clinic in [place] FULL CODE DISPOSITION Possible discharge tomorrow if no sign of withdrawal overnight pt will follow up with his Family Physician in [place] area continue to follow up at Suboxone clinic in [facility] Vital Signs: Date Time Temp Pulse Resp B/P Pulse Ox O2 Delivery O2 Flow Rate FiO2 02/27/17 19:40 36.7 72 22 153/93 95 Room Air 02/27/17 16:11 97 Room Air 02/27/17 14:59 36.6 67 16 155/92 97 Room Air 02/27/17 12:20 92 Room Air 02/27/17 11:25 36.6 81 20 146/95 92 Room Air 02/27/17 08:00 Room Air 02/27/17 07:10 36.5 65 20 136/84 91 Room Air 02/27/17 04:00 Room Air 02/27/17 03:49 36.8 94 20 155/88 94 Room Air 02/27/17 00:00 Room Air 02/26/17 23:02 36.7 78 18 142/86 94 Room Air 02/26/17 20:18 36.5 79 20 160/101 94 Room Air Lab Results: Results Past 24 Hours Test 02/26/17 20:45 02/26/17 21:06 02/27/17 03:00 02/27/17 03:20 Range/Units White Blood Count 7.01 7.56 4.8-10.8 K/uL Red Blood Count 4.51 4.66 4.7-6.1 M/uL Hemoglobin 13.1 12.8 14.0-18.0 g/dL Hematocrit 37.9 39.0 42-52 % Mean Corpuscular Volume 84.0 83.7 80-100 fL Mean Corpuscular Hemoglobin 29.0 27.5 25-34 pg Mean Corpuscular Hemoglobin Concent 34.6 32.8 32-36 g/dl RDW Standard Deviation 41.2 41.3 36.4-46.3 fL RDW Coefficient of Variation 13.5 13.5 11.5-14.5 % Platelet Count 94 114 130-400 K/uL Mean Platelet Volume 11.1 10.4 7.4-10.4 fL Platelet Estimate DECREASED Creatine Kinase MB 2.9 2.2 0.5-3.6 ng/ml Creatine Kinase MB Ratio 0-3.0 Troponin I < 0.015 < 0.015 0-0.045 ng/ml Bedside Glucose 137 70-99 mg/dl Sodium Level 140 136-145 mmol/L Potassium Level 3.3 3.5-5.1 mmol/L Chloride Level 108 98-107 mmol/L Carbon Dioxide Level 25 21-32 mmol/L Anion Gap 7.0 3-11 mmol/L Blood Urea Nitrogen 10 7-18 mg/dl Creatinine 0.75 0.60-1.40 mg/dl Est Creatinine Clear Calc Drug Dose 112.1 ml/min Estimated GFR () 113.9 Estimated GFR (Non- 98.3 BUN/Creatinine Ratio 13.1 10-20 Random Glucose 122 70-99 mg/dl Estimated Average Glucose 128 mg/dl Hemoglobin A1c 6.1 4.5-5.6 % Calcium Level 8.1 8.5-10.1 mg/dl Triglycerides Level 103 0-150 mg/dl Cholesterol Level 110 0-200 mg/dl HDL Cholesterol 30 mg/dl LDL Cholesterol, Calculated 59 mg/dl VLDL Cholesterol, Calculated 21 mg/dl Cholesterol/HDL Ratio 3.7 Test 02/27/17 06:46 02/27/17 11:20 02/27/17 14:55 Range/Units Bedside Glucose 136 216 70-99 mg/dl Urine Opiates Screen POS NEG Urine Methadone, Qualitative NEG NEG Urine Barbiturates NEG NEG Urine Phencyclidine (PCP) Level NEG NEG Ur Amphetamine/Methamphetamine NEG NEG MDMA (Ecstasy) Screen NEG NEG Urine Benzodiazepines Screen POS NEG Urine Cocaine Metabolite NEG NEG Urine Marijuana (THC) NEG NEG Microbiology Results 02/26/17 Blood Culture, Received Pending
[2017-02-27] MEDS ORDERED: MULTI VITAMIN INFUSION IV SCH ×4 (21:00)
[2017-02-27] MEDS ORDERED: [UNRECOGNIZED DRUG - OTHER] IV SCH ×4 (21:00)
[2017-02-27] MEDS ORDERED: SODIUM CHLORIDE 0.9% IV SCH ×4 (21:00)
[2017-02-27] MEDS: DOXEPIN HCL 50 MG CAP PO SCH (21:41)
[2017-02-28 03:58] VITALS: BP 148/89; PULSE 60; TEMP 36.3; O2SAT 92
[2017-02-28] MEDS: INSULIN ASPART 100 UNITS/ML 3 ML PEN SC SCH (07:00)
[2017-02-28 07:59] VITALS: BP 168/98; PULSE 74; TEMP 37.2; O2SAT 98
[2017-02-28 08:00] VITALS: BP 135/82; PULSE 65; TEMP 36.7; O2SAT 94
[2017-02-28] MEDS: FAMOTIDINE 20 MG TAB PO SCH (08:00)
[2017-02-28] MEDS: GABAPENTIN 800 MG TAB PO SCH (08:00)
[2017-02-28] MEDS ORDERED: CHLORDIAZEPOXIDE 50MG Q8H DOSE PO SCH (08:00)
[2017-02-28] MEDS: ASPIRIN 81 MG ECTAB PO SCH (08:01)
[2017-02-28] MEDS: CLONIDINE HCL 0.1 MG TAB PO SCH (08:01)
[2017-02-28 08:07] VITALS: BP 135/82; PULSE 65; TEMP 36.7; O2SAT 94
--- NOTE | 2017-02-28 10:08 | Progress Note ---
Internal Med Progress Note Date of Service: Feb 28, 2017. Provider Documentation: SUBJECTIVE: No complain of chest pain or sob vitals remains stable dressed up ready to be discharged needs to get on Bus to [place] at 10 am OBJECTIVE: Vital Signs-as noted below Exam: GEN ; disheveled appearing , no sign of distress HT : regular S1.S2 LUNGS : CTA ABDOMEN: soft, non tender EXT : multiple track springer on extremities NEURO: no focal deficit Lab data as noted below. ASSESSMENT & PLAN: CHEST PAIN ; no further symptom no evidence of ACS /possible drug withdrawal serial Cardiac markers -negative no ST-T wave changes in EKG stable to be discharged pt is counselled to avoid street drugs Mentions that he has been using them all through his life , now it is too late to quit POLYSUBSTANCE ABUSE /ETOH INTOXICATION: no evidence of withdrawal appreciate input from Psych pt is demonstrating behavior of Narcotic addition PDMP reviewed -pt had filled 16 prescription of Suboxone form 7 different providers in past few months will not be discharged with any prescription narcotics or BDZ will need to be follow up with Suboxone clinic in [place] FULL CODE DISPOSITION pt is discharged today pt will follow up with his Family Physician in [place] area continue to follow up at Suboxone clinic in [facility] Vital Signs: Date Time Temp Pulse Resp B/P (MAP) Pulse Ox O2 Delivery O2 Flow Rate FiO2 02/28/17 08:07 36.7 65 20 94 Room Air 02/28/17 08:00 36.7 65 20 135/82 (99) 94 Room Air 02/28/17 04:00 Room Air 02/28/17 03:58 36.3 60 19 148/89 (108) 92 Room Air 02/27/17 23:58 Room Air 02/27/17 23:13 36.4 65 20 147/90 (109) 94 Room Air 02/27/17 20:00 97 Room Air 02/27/17 19:40 36.7 72 22 153/93 (113) 95 Room Air 02/27/17 16:11 97 Room Air 02/27/17 14:59 36.6 67 16 155/92 (113) 97 Room Air 02/27/17 12:20 92 Room Air 02/27/17 11:25 36.6 81 20 146/95 (112) 92 Room Air Lab Results: Results Past 24 Hours Test 02/27/17 11:20 02/27/17 14:55 02/27/17 20:03 02/28/17 06:26 Range/Units Bedside Glucose 216 134 117 70-99 mg/dl Urine Opiates Screen POS NEG Urine Methadone, Qualitative NEG NEG Urine Barbiturates NEG NEG Urine Phencyclidine (PCP) Level NEG NEG Ur Amphetamine/Methamphetamine NEG NEG MDMA (Ecstasy) Screen NEG NEG Urine Benzodiazepines Screen POS NEG Urine Cocaine Metabolite NEG NEG Urine Marijuana (THC) NEG NEG
--- NOTE | 2017-02-28 10:09 | Discharge Summary ---
Discharge Summary Date of Service Feb 28, 2017. Discharge Summary Admission Date: February 26, 2017 at 17:11 Discharge Date: Feb 28, 2017 Discharge Disposition: Home Principal Diagnosis: NON SPECIFIC CHEST PAIN /POLYSUBSTANCE ABUSE /ALCOHOL WITHDRAWL Medication Reconciliation Continued Medications: Buprenorphine Hcl-Naloxone Hcl (Suboxone 8-2 Mg) 1 Sub Sub 1 TAB PO DAILY PRN for PRN Clonidine Hcl (Catapres) 0.1 Mg Tab 0.1 MG PO TID, TAB Doxepin (Sinequan) 50 Mg Cap 100 MG PO HS, CAP Famotidine (Pepcid) 20 Mg Tab 20 MG PO DAILY, TAB Gabapentin (Neurontin) 800 Mg Tab 800 MG PO TID, TAB Lisinopril (Prinivil) 5 Mg Tab 5 MG PO DAILY, TAB not taking Metformin Hcl (Glucophage) 500 Mg Tab 500 MG PO BID, TAB not taking Promethazine Hcl (Phenergan) 25 Mg Tab 25 MG PO BID PRN for Nausea, TAB Quetiapine Fumarate (Seroquel) 100 Mg Tab 100 MG PO BID, TAB not taking Sumatriptan Succinate (Imitrex) 50 Mg Tab 50 MG PO PRN, TAB Admission Information HPI (per Admitting provider): 61 year old male who presents to the ER with chest pain and shortness of breath. Patient reports his symptoms began today while he was laying on the couch. He reports the pain as located in his mid chest. He describes the pain as a pressure. He reports associated shortness of breath, lightheadedness, and dizziness. He describes the pain as severe. He denies diaphoresis or nausea. He reports exertional shortness of breath for the past one year. He also reports coughing up blood for the past one year. Patient is from the [facility] and is here visiting a friend. He admits to drug and alcohol use however does not give many details about the quantity of his use. He reports drinking three 40oz beers yesterday but will not say how often he drinks. He reports using "speed balls" two days ago which he reports is a combination of heroine and cocaine that can be injected or inhaled. Again, he will not say how often he uses. He does report using for the past 40 years. He says that he uses when he is depressed. He reports suicidal thoughts but denies having a plan. He does report multiple intentional drug overdoses and reports "it never seems to work. I always wake up." He denies abdominal pain, vomiting, or diarrhea. No fevers or chills. He denies any urinary symptoms. In the ER, patient's work up is unremarkable. Physical Exam (per Admitting): General Appearance: no apparent distress Head: normocephalic Eyes: normal inspection ENT: hearing grossly normal Neck: supple, no JVD Respiratory/Chest: lungs clear, normal breath sounds, no respiratory distress, + pertinent finding Cardiovascular: regular rate, rhythm, no edema, normal peripheral pulses Abdomen/GI: normal bowel sounds, non tender, soft Extremities/Musculoskelatal: normal inspection, no calf tenderness Neurologic/Psych: no motor/sensory deficits, alert, normal mood/affect, oriented x 3 Skin: normal color, warm/dry Hospital Course CHEST PAIN ; no further symptom no evidence of ACS /possible drug withdrawal serial Cardiac markers -negative no ST-T wave changes in EKG stable to be discharged pt is counselled to avoid street drugs Mentions that he has been using them all through his life , now it is too late to quit POLYSUBSTANCE ABUSE /ETOH INTOXICATION: no evidence of withdrawal appreciate input from Psych pt is demonstrating behavior of Narcotic addition PDMP reviewed -pt had filled 16 prescription of Suboxone form 7 different providers in past few months will not be discharged with any prescription narcotics or BDZ will need to be follow up with Suboxone clinic in [place] FULL CODE DISPOSITION pt is discharged today pt will follow up with his Family Physician in [place] area continue to follow up at Suboxone clinic in [facility] Discharge Instructions DI: Medical v4 Discharge Instructions Date of Service February 27, 2017. Admission Reason for Admission: Chest Pain Discharge Discharge Diagnosis / Problem: NON SPECIFIC CHEST PAIN /POLYSUBSTANCE ABUSE / ALCOHOL WITHDRAWAL Discharge Goals Goal(s): Decrease discomfort, Improve disease control Activity Recommendations Activity Limitations: resume your previous activity . Instructions / Follow-Up Instructions / Follow-Up HOSPITAL FOLLOW UP WITH YOUR FAMILY PHYSICIAN IN A WEEK , PLEASE CALL TO SCHEDULE APPOINTMENT NEED COMPLETE ABSTINENCE FORM ALCOHOL , IV DRUGS Current Hospital Diet Patient's current hospital diet: AHA Diet (Heart Healthy), Diabetes Type 2 Diet Discharge Diet Recommended Diet: AHA Diet (Heart Healthy), Low Sodium Diet (2gm Na) Pending Studies Studies pending at discharge: no Laboratory Results Hemoglobin A1c Test 02/27/17 03:20 Range/Units Estimated Average Glucose 128 mg/dl Hemoglobin A1c 6.1 H 4.5-5.6 % Lipid Panel Test 02/27/17 03:20 Range/Units Triglycerides Level 103 0-150 mg/dl Cholesterol Level 110 0-200 mg/dl HDL Cholesterol 30 mg/dl Cholesterol/HDL Ratio 3.7 LDL Cholesterol, Calculated 59 mg/dl Medical Emergencies . Who to Call and When: Medical Emergencies: If at any time you feel your situation is an emergency, please call 911 immediately. . Non-Emergent Contact Non-Emergency issues call your: Primary Care Provider . . "Provider Documentation" section prepared by Jasmyne Mandujano. . VTE Core Measure Inpt VTE Proph given/why not?: [facility] [place] Drug Monitoring Program Search Results: patient reviewed within database, see additional documentation Drug Monitoring Findings: PER PDMP SEARCH pt received 16 prescriptions of Suboxone form 7 different providers 02/21/17 Filled Suboxone # 28 tablet 02/08 Filled Suboxone # 46 tablet 02/06/17 Filled Suboxone # 16 tablet 01/12/17 Filled Suboxone # 10 tablet
[2017-03-01] MEDS ORDERED: CHLORDIAZEPOXIDE 25MG Q8H DOSE PO SCH (06:00)
[2017-03-02] MEDS ORDERED: CHLORDIAZEPOXIDE 10MG Q12H DOSE PO SCH (10:00)
[2017-03-03 12:08] LABS: COD UR NEGATIVE NG/ML (CUTOFF=50); HYDROCOD UR NEGATIVE NG/ML (CUTOFF=50); HYDROMOR UR NEGATIVE NG/ML (CUTOFF=50); HYDROXYETHYLFLURAZEPAM CONF NEGATIVE NG/ML (CUTOFF=50); HYDROXYMIDAZOLAM NEGATIVE NG/ML (CUTOFF=50); HYDROXYTRIAZOLAM CONF NEGATIVE NG/ML (CUTOFF=50); MORPHINE UR 580 NG/ML (CUTOFF=50); NORHYDROCODONE CONF UR NEGATIVE NG/ML (CUTOFF=50); OXYMORPH UR NEGATIVE NG/ML (CUTOFF=50); TEMAZEPAM CONF NEGATIVE NG/ML (CUTOFF=50)
== END 2017-02-28 09:03 | disposition home or self-care (01) ==
LOC: ENRESERVTM → CANRESERV → ENRESERVDT → C.EDB 15:26 → C.2T 17:11 → EDBEDREQ 18:08
PROVIDERS: ADMIT Hospitalist; ATTEND Hospitalist
DX: R07.9 Chest pain, unspecified (principal); I10 Essential (primary) hypertension; E11.9 Type 2 diabetes mellitus without complications; B19.20 Unspecified viral hepatitis C without hepatic coma; Z86.14 Personal history of Methicillin resistant Staphylococcus aureus infection; Z86.711 Personal history of pulmonary embolism; Z79.84 Long term (current) use of oral hypoglycemic drugs; Z79.899 Other long term (current) drug therapy; F10.239 Alcohol dependence with withdrawal, unspecified; F34.9 Persistent mood [affective] disorder, unspecified; F14.10 Cocaine abuse, uncomplicated; F11.20 Opioid dependence, uncomplicated